=== PATIENT | male | born 1985 | race Caucasian/White ===

== ENCOUNTER 2019-05-02 12:33 | Emergency (ER) | payer OTHER ==
[2019-05-02 13:10] VITALS: TEMP 97
[2019-05-02] MEDS ORDERED: KETOROLAC TROMETHAMINE INJ 30 MG/ML VIAL IM ONE (13:16)
[2019-05-02] MEDS ORDERED: CLINDAMYCIN HCL CAP 150 MG CAP PO ONE (13:17)
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
[2019-05-04 19:22] VITALS: BP 154/88; O2SAT 99
== END 2019-05-02 14:40 | disposition home or self-care (01) ==
LOC: ER 12:33
DX: S02.5XXA Fracture of tooth (traumatic), initial encounter for closed fracture (principal); W50.0XXA Accidental hit or strike by another person, initial encounter; Y92.9 Unspecified place or not applicable
CPT/HCPCS: 36415; 80048; 85025; J1885